=== PATIENT | female | born 1970 | race Caucasian/White ===

== ENCOUNTER 2017-03-25 09:02 | Emergency (ER) | payer MEDICAID ==
[~2017-03-25] VITALS: Ht 154.9 cm; Wt 90.0 kg
[~2017-03-25 09:02] MED LIST: CLIN300C2 PO; LISI-424 PO; METF1000 PO
[2017-03-25 09:08] VITALS: BP 140/74
--- NOTE | 2017-03-25 09:16 | NUR ---
PT AMB TO BED4
--- NOTE | 2017-03-25 09:17 | NUR ---
47F BIB FAMILY C/O THROAT PAIN X TODAY, LEFT FOOT PAIN X 4 DAYS, AND LOWER BACK PAIN X 3 WEEKS. PT STATES NO TRAUMA OR INJURY TO SITES AT THIS TIME.HX: DM. DENIES N/V/D; SKIN IS PINK/WARM/DRY; AAOX4 WITH EVEN AND STEADY GAIT; LUNGS CLEAR BL; HR EVEN AND REGULAR; PT DENIES ANY FEVER, CP, SOB, OR COUGH AT THIS TIME; PATIENT STATES PAIN OF 10/10 AT THIS TIME; PATIENT POSITIONED FOR COMFORT; HOB ELEVATED; BEDRAILS UP X2; BED DOWN. ER MD MADE AWARE OF PT STATUS.
--- NOTE | 2017-03-25 09:48 | NUR ---
C/O SORE THROAT, HEADACHE, L FOOT PAIN, LOWER BACK PAIN 10/[address] URIAS.
--- NOTE | 2017-03-25 09:49 | NUR ---
ER MD DR KAMARA EVALUATING PT AT BEDSIDE.
--- NOTE | 2017-03-25 09:53 | NUR ---
Wali cordova in ED - 03/25/17 at 0954 by MED1 C/O SORE THROAT, HEADACHE, L FOOT PAIN, LOWER BACK PAIN 06/05 AT THIS TIME.
[2017-03-25] MEDS ORDERED: KETOROLAC 60 MG/2 ML VIAL IM ONE (09:55)
[2017-03-25] MEDS ORDERED: oxyCODONE/APAP 5/325 MG 1 TAB TAB PO ONE (09:55)
--- NOTE | 2017-03-25 10:00 | NUR ---
ER MD DR KAMARA REEVALUATING PT AT BEDSIDE.
--- NOTE | 2017-03-25 10:02 | NUR ---
ADMINISTERED MEDS ORDER.
--- NOTE | 2017-03-25 10:08 | NUR ---
X RAY AT BEDSIDE
--- NOTE | 2017-03-25 10:20 | NUR ---
PT STS PAIN 6/10.Patient appears to be resting comfortably in bed. Vital Signs within normal limits. Respirations even and unlabored.WILL CONTINUE TO MONITOR.
--- NOTE | 2017-03-25 10:42 | NUR ---
CHAN KAMARA REEVALUATING PT AT BEDSIDE. Addendum: 03/25/17 at 1042 by MED1 PAIN 11/03
[2017-03-25 10:50] VITALS: BP 125/78
--- NOTE | 2017-03-25 10:50 | NUR ---
Patient discharged with v/s stable. Written and verbal after care instructions given and explained. Patient alert, oriented and verbalized understanding of instructions. Ambulatory with steady gait. All questions addressed prior to discharge. ID band removed. Patient advised to follow up with PMD. Rx of OMEPRAZOLE, NORCO & VOLTAREN given. Patient educated on indication of medication including possible reaction and side effects. Opportunity to ask questions provided and answered.
== END 2017-03-25 10:50 | disposition home or self-care (01) ==
LOC: MED 09:02
DX: K21.9 Gastro-esophageal reflux disease without esophagitis (principal); M72.2 Plantar fascial fibromatosis; E11.9 Type 2 diabetes mellitus without complications; I10 Essential (primary) hypertension
CPT/HCPCS: 73630; 81002; 81025; 82948; 96372; 99284; J1885